=== PATIENT | male | born 1950 | race Caucasian/White ===

== ENCOUNTER → 2018-01-01 | Outpatient (CLI) | payer OTHER ==
[~2018-01-01] VITALS: Ht 175.3 cm; Wt 110.2 kg
[~2018-01-01] MED LIST: ACCUPRIL20 MG PO; ACTOPLUS MET1 TABLE1 PO; CYANOCOBAL1000 MCG/2 IM; HUMALOG MI100 UNIT/1 SC; LIPITOR40 MG PO; LO-DOSE ASPIRIN81 M1 PO
== END | disposition home or self-care (01) ==
LOC: AMB 09:30
PROVIDERS: Internal Medicine Gastroenterology
DX: K29.70 Gastritis, unspecified, without bleeding (principal); D51.0 Vitamin B12 deficiency anemia due to intrinsic factor deficiency; Q40.3 Congenital malformation of stomach, unspecified; E83.119 Hemochromatosis, unspecified; E11.9 Type 2 diabetes mellitus without complications; E78.5 Hyperlipidemia, unspecified; I10 Essential (primary) hypertension; E66.9 Obesity, unspecified; Z82.3 Family history of stroke; Z82.49 Family history of ischemic heart disease and other diseases of the circulatory system; Z83.3 Family history of diabetes mellitus; Z80.0 Family history of malignant neoplasm of digestive organs
CPT/HCPCS: 82948; 88305; 88342 TC; 93005; C1726; J2250; J2405